=== PATIENT | male | born 1980 | race Caucasian/White ===

== ENCOUNTER 2024-02-20 11:34 | Emergency (ER) | payer BC ==
[~2024-02-20] VITALS: Ht 170.2 cm; Wt 109.1 kg
[2024-02-20] MEDS ORDERED: GLUCOPHAGE PO (12:12)
[2024-02-20] MEDS ORDERED: PRILOSEC 20MG20 MG PO (12:12)
[2024-02-20] MEDS ORDERED: OZEMPIC1 MG/0.71 SQ (12:13)
[2024-02-20] MEDS ORDERED: Ketorolac 30 MG/ML VIAL IM ONE (13:00)
[2024-02-20] MEDS ORDERED: NORCO 325 MG-51 TA1 PO (13:15)
[2024-02-20] MEDS ORDERED: CEPHALEXIN500 M1 PO (13:15)
[2024-02-20 14:30] VITALS: BP 130/78
== END 2024-02-20 14:41 | disposition home or self-care (01) ==
LOC: ED 11:34
DX: L03.011 Cellulitis of right finger (principal)
CPT/HCPCS: J1885